=== PATIENT | female | born 1950 | race Caucasian/White ===

== ENCOUNTER 2018-01-03 09:41 | Outpatient (CLI) | payer MEDICARE, OTHER | END 2018-01-03 19:48 | disposition home or self-care (01) | LOC: SMA 09:41 | PROVIDERS: ATTEND Family Medicine | DX: Z12.31 Encounter for screening mammogram for malignant neoplasm of breast (principal) | CPT/HCPCS: 77067 ==

== ENCOUNTER 2019-01-25 13:28 | Outpatient (CLI) | payer OTHER | END 2019-01-25 20:47 | disposition home or self-care (01) | LOC: SMA 13:28 | PROVIDERS: ATTEND Family Medicine | DX: Z12.31 Encounter for screening mammogram for malignant neoplasm of breast (principal) | CPT/HCPCS: 77067 ==